=== PATIENT | male | born 1950 ===

== ENCOUNTER 2017-07-12 10:50 | Emergency (ER) | payer OTHER ==
[~2017-07-12] VITALS: Ht 167.6 cm; Wt 90.7 kg
[~2017-07-12 10:50] MED LIST: LISINOPRIL5 MG PO
[2017-07-12] MEDS ORDERED: LISINOPRIL10 MG (11:05)
[2017-07-12] MEDS ORDERED: KETO10TA2 PO (12:23)
== END 2017-07-12 12:39 | disposition home or self-care (01) ==
LOC: ER 10:50
DX: S20.212S Contusion of left front wall of thorax, sequela (principal); R07.81 Pleurodynia; G89.11 Acute pain due to trauma; W18.39XS Other fall on same level, sequela

== ENCOUNTER 2021-07-19 08:56 | Emergency (ER) | payer OTHER ==
[~2021-07-19] VITALS: Ht 152.4 cm; Wt 77.1 kg
[~2021-07-19 08:56] MED LIST changes: +KETO10TA2 PO; +LISINOPRIL10 MG
== END 2021-07-19 13:02 | disposition home or self-care (01) ==
LOC: ER 08:56
DX: R10.11 Right upper quadrant pain (principal); I10 Essential (primary) hypertension